=== PATIENT | male | born 1985 | race Caucasian/White ===

== ENCOUNTER 2018-11-18 15:05 | Emergency (ER) | payer OTHER ==
[~2018-11-18] VITALS: Ht 154.9 cm; Wt 47.8 kg
[~2018-11-18 15:05] MED LIST: IBUP-1542 PO
[2018-11-18 15:11] VITALS: Ht 154.9 cm; Wt 47.8 kg
[2018-11-18 19:48] VITALS: BP 126/64; PULSE 141; RESP 14
== END 2018-11-18 19:47 | disposition home or self-care (01) ==
LOC: FTE 15:05
DX: S39.92XA Unspecified injury of lower back, initial encounter (principal); W18.39XA Other fall on same level, initial encounter; Y92.9 Unspecified place or not applicable
CPT/HCPCS: 72100; 72220; Z7502